=== PATIENT | female | born 1935 | race African-American/Black ===

== ENCOUNTER 2017-04-16 17:31 | Emergency (ER) | payer MEDICARE, BC ==
[~2017-04-16] VITALS: Ht 165.1 cm; Wt 74.8 kg
--- NOTE | 2017-04-16 19:04 | PHYS DOC ---
Past Medical History Past Medical History: Hypertension Past Surgical History: Cancer Surgery, Other Additional Past Surgical Histo: G TUBE Alcohol Use: None Drug Use: None Adult General Chief Complaint Chief Complaint: GTUBE REPLACEMENT/MALFUNCTION HPI HPI Patient is a 82 year old female who presents accidental dislodgment of her G- tube 90 minutes prior to arrival which was originally placed about 2 years ago and was replaced about a month ago at . Review of Systems Review of Systems Constitutional: Denies fever or chills [] Eyes: Denies change in visual acuity, redness, or eye pain [] HENT: Denies nasal congestion or sore throat [] Respiratory: Denies cough or shortness of breath [] Cardiovascular: No additional information not addressed in HPI [] GI: Denies abdominal pain, nausea, vomiting, bloody stools or diarrhea [] : Denies dysuria or hematuria [] Musculoskeletal: Denies back pain or joint pain [] Integument: Denies rash or skin lesions [] Neurologic: Denies headache, focal weakness or sensory changes [] Endocrine: Denies polyuria or polydipsia [] All other systems were reviewed and found to be within normal limits, except as documented in this note. Current Medications Current Medications Current Medications Medications (Trade) Dose Ordered Sig/Aiden Start Time Stop Time Status Last Admin Dose Admin Iohexol (Omnipaque 240 Mg/ml) 50 ml 1X ONCE 04/16/17 19:15 04/16/17 19:16 DC 04/16/17 19:15 50 ML Allergies Allergies Allergies Coded Allergies Type Severity Reaction Last Updated Verified digoxin Allergy Intermediate 04/16/17 Yes Uncoded Allergies Type Severity Reaction Last Updated Verified DIURETICS Adverse Reaction Intermediate 04/16/17 Physical Exam Physical Exam Constitutional: Well developed, well nourished, no acute distress, non-toxic appearance. [] HENT: Normocephalic, atraumatic, bilateral external ears normal, oropharynx moist, no oral exudates, nose normal. [] Eyes: PERRLA, EOMI, conjunctiva normal, no discharge. [] Neck: Normal range of motion, no tenderness, supple, no stridor. [] Cardiovascular:Heart rate regular rhythm, no murmur [] Lungs & Thorax: Bilateral breath sounds clear to auscultation [] Abdomen: Bowel sounds normal, soft, no tenderness, no masses, no pulsatile masses. Stoma visualized no active bleeding G-tube is completely out and intact. [] Skin: Warm, dry, no erythema, no rash. [] Back: No tenderness, no CVA tenderness. [] Extremities: No tenderness, no cyanosis, no clubbing, ROM intact, no edema. [] Neurologic: Alert and oriented X 3, normal motor function, normal sensory function, no focal deficits noted. [] Psychologic: Affect normal, judgement normal, mood normal. [] Current Patient Data Vital Signs Vital Signs Date Time Temp Pulse Resp B/P (MAP) Pulse Ox O2 Delivery O2 Flow Rate FiO2 04/16/17 18:25 97.9 74 18 126/77 (93) 98 Room Air 97.9 EKG EKG [] Radiology/Procedures Radiology/Procedures KUB with Gastrografin: Demonstrates proper placement of the gastrostomy tube my interpretation[] Course & Med Decision Making Course & Med Decision Making Pertinent Labs and Imaging studies reviewed. (See chart for details) Procedure gastrostomy tube replacement:[] gentle direct pressure a 22 Syrian gastrostomy tube was placed without complication blood loss of 1 mL. Placement was confirmed with x-ray and contrast. 20 mL of sterile water was instilled to inflate the balloon. Dragon Disclaimer Dragon Disclaimer This electronic medical record was generated, in whole or in part, using a voice recognition dictation system. Departure Departure Impression: Primary Impression: Dislodged gastrostomy tube Disposition: 01 HOME, SELF-CARE Condition: IMPROVED Referrals: BLAZE LACY (PCP) Patient Instructions: Gastric Tube Replacement DORIS NULL MD Apr 16, 2017 19:04
[2017-04-16] MEDS ORDERED: IOHEXOL 240 MG/ML 50ML VIAL. PO ONE (19:15)
[2017-04-16 19:30] VITALS: BP 162/78
--- NOTE | 2017-04-17 07:47 | RAD ---
Indication: Check G-tube placement. Technique: KUB was performed. 40 mL of Omnipaque 240 was injected through the tube either by the technologist or emergency room staff prior to the KUB. Findings: Contrast is within the stomach. There is no extraluminal contrast. There is no evidence of bowel obstruction. There are calcified phleboliths in the pelvis. There are degenerative changes in the spine, advanced. Impression: Gastrostomy tube appears in position.
== END 2017-04-16 20:07 | disposition home or self-care (01) ==
LOC: ER 17:31
DX: Z43.1 Encounter for attention to gastrostomy (principal); I10 Essential (primary) hypertension; Z88.8 Allergy status to other drugs, medicaments and biological substances
CPT/HCPCS: 43760; 74000; 99284; Q9966